=== PATIENT | male | born 1970 | race Caucasian/White ===

== ENCOUNTER 2021-07-19 15:18 | Outpatient (CLI) | payer OTHER, SELFPAY ==
--- NOTE | ~2021-07-19 | US_ITS ---
EXAMINATION: US soft tissue abdomen DATE: 07/19/2021 15:44 INDICATION: Palpable mass in the infracostal right upper quadrant TECHNIQUE: Multiple grayscale and Doppler ultrasound images of the region of concern along the right upper quadrant abdominal wall were obtained. COMPARISON: None FINDINGS: Subcutaneous fat, underlying abdominal wall musculature and liver appear normal at the region of conc simon. IMPRESSION: 1. Normal study. No correlate identified for reported palpable abnormality at the right upper quadran t region of concern. Reviewed, dictated and finalized at location B. IMPRESSION: 1. Normal study. No correlate identified for reported palpable abnormality at t he right upper quadrant region of concern.
== END 2021-07-19 15:19 | disposition home or self-care (01) ==
LOC: ANHIMG 15:19
PROVIDERS: PCP Internal Medicine; Visit Provider Internal Medicine
DX: R10.2 Pelvic and perineal pain (principal); R19.00 Intra-abdominal and pelvic swelling, mass and lump, unspecified site
CPT/HCPCS: 76705

== ENCOUNTER 2021-08-22 01:53 | Day surgery (SDC) | payer OTHER, SELFPAY ==
[2021-08-02 14:58] VITALS: BMI 24.1
--- NOTE | 2021-08-16 08:55 | PC.NURSE ---
Message left on patients cell phone and with Regina regarding covid testing on Saturday 08/19. Informed of the new guidelines regarding screening for covid and illness prior to coming in for procedure and if necessary pt will be rapid swabbed on arrival to Endoscopy. Instructed to call prior to preparation of colonoscopy if having any symptoms or any member of household having a positive test in past 2 weeks. Regina verbalizes understanding.
--- NOTE | 2021-08-19 15:13 | PM.HPGS ---
History of Present Illness History of Present Illness Consent: Risks, benefits, and alternatives have been discussed and questions answered. Patient agrees to proceed with procedure. Chief complaint: neoplasm screening Narrative: Ivan Salgado is a 51 year old male Referred for colon cancer screening. This is his 1st colonoscopy. He is not aware of any family history of colon cancer except for a great grandparent. Review of Systems Review of Systems: All systems reviewed & are unremarkable except as noted in HPI and below PMFSH Past Medical History Medical History History of broken finger History of nephrolithotomy with removal of calculi Kidney stone Surgical History Surgical History H/O lymph node biopsy Family History Family History Mother Patient's mother is in good health Father Patient's father is in good health Sibling Patient's sister is in good health Grandparent Family history of cardiovascular disease Carcinoma of colon Other Acute myocardial infarction Cerebrovascular accident Hypertension Social History Social History Smoking status: Former smoker Tobacco type: smokeless tobacco Smokeless tobacco user: chewing tobacco Alcohol intake: current Drinks per week: 35 Substance use: current Substance use type: marijuana Other substance usage details: occasionally Living arrangements: with family Spiritual care concerns: No Meds Home Medications and Allergies Home Medications Medication Instructions Recorded Confirmed Type crisaborole 2 % topical ointment 1 applic TOPICAL BID #60 g 11/23/20 08/02/21 Rx losartan 50 mg tablet 50 mg PO DAILY #90 tablet 06/17/21 08/02/21 Rx mometasone 0.1 % topical cream 1 applic TOPICAL DAILY #45 g 06/17/21 08/02/21 Rx rosuvastatin 40 mg tablet 40 mg PO DAILY #90 tablet 06/17/21 08/02/21 Rx icmyejyh-xus-qqzpa-vit K-lycop 1 tablet PO DAILY 08/02/21 08/02/21 History [Men's Multivitamin] Allergies Allergy/AdvReac Type Severity Reaction Status Date / Time acetaminophen AdvReac Mild CONSTIPATED Verified 08/22/21 08:36 hydrocodone AdvReac Mild CONSTIPATED Verified 08/22/21 08:36 oxycodone AdvReac Mild Abdominal Verified 08/22/21 08:36 Pain Exam Resp: Auscultation: clear to auscultation bilaterally Cardio: Rate: regular rate Rhythm: regular rhythm GI: GI Palp: Yes Soft to palpation and No Tenderness to palpation present (GI) Assessment and Plan Assessment and plan (1) Colon cancer screening: Code(s): Z12.11 - Encounter for screening for malignant neoplasm of colon Status: Acute Assessment and Plan: Colonoscopy with possible biopsy or polypectomy or cautery or injection of substances.
[2021-08-22 08:37] VITALS: BP 154/91; PULSE 62; RESP 17; TEMP 36.2; O2SAT 100
[2021-08-22] MEDS: LACTATED RINGERS 1,000 ML 150 ML IV CONT (08:48)
--- NOTE | 2021-08-22 09:11 | WPDANESEPPF ---
Anes - Initial Pre Proc Eval Procedure: Operation Date: 08/22/21 09:30 Proposed Procedures p Screening Colonoscopy - Jay Castillo MD Date/Time: 08/22/21 09:11 Surgeon: Jay Castillo MD Pre Op Diagnosis: neoplasm screening Patient Data Age: 51 Gender: M Height: 1.7 m Weight: 68.6 kg Last Vital Signs Temp 97.1 F L 08/22/21 08:37 Pulse 62 08/22/21 08:37 Resp 17 08/22/21 08:37 BP 154/91 H 08/22/21 08:37 Pulse Ox 100 08/22/21 08:37 Allergies Allergy/AdvReac Type Severity Reaction Status Date / Time acetaminophen AdvReac Mild CONSTIPATED Verified 08/22/21 08:36 hydrocodone AdvReac Mild CONSTIPATED Verified 08/22/21 08:36 oxycodone AdvReac Mild Abdominal Verified 08/22/21 08:36 Pain Home Medications Medication Instructions Recorded Confirmed Type crisaborole 2 % topical ointment 1 applic TOPICAL BID #60 g 11/23/20 08/02/21 Rx losartan 50 mg tablet 50 mg PO DAILY #90 tablet 06/17/21 08/02/21 Rx mometasone 0.1 % topical cream 1 applic TOPICAL DAILY #45 g 06/17/21 08/02/21 Rx rosuvastatin 40 mg tablet 40 mg PO DAILY #90 tablet 06/17/21 08/02/21 Rx ozhnynxt-eot-nspgd-vit K-lycop 1 tablet PO DAILY 08/02/21 08/02/21 History [Men's Multivitamin] Patient hx anesthesia problems: none Family hx anesthesia problems: none Results Review: All pre-operative results and documents have been reviewed as part of the pre-operative evaluation. [facility] Past Medical History Medical History History of broken finger History of nephrolithotomy with removal of calculi Kidney stone Surgical History Surgical History H/O lymph node biopsy Family History Family History Mother Patient's mother is in good health Father Patient's father is in good health Sibling Patient's sister is in good health Grandparent Family history of cardiovascular disease Carcinoma of colon Other Acute myocardial infarction Cerebrovascular accident Hypertension Social History Social History Smoking status: Former smoker Tobacco type: smokeless tobacco Smokeless tobacco user: chewing tobacco Alcohol intake: current Drinks per week: 35 Substance use: current Substance use type: marijuana Other substance usage details: occasionally Living arrangements: with family Spiritual care concerns: No Anes - Eval Final PreProcedure Day of Procedure 08/22/21 09:11 Patient weight: normal Heart: regular rate and rhythm Lungs: clear to auscultation Airway: Mallampati scale class II Neurological: alert and oriented Last oral intake: >/= 8 hours ASA classification: II Emergent: no Anesthetic plan: proceed Anesthesia type and monitoring: general GIVS and standard monitoring Results Review: All pre-operative results and documents have been reviewed as part of the pre-operative evaluation. Informed Consent: The patient's anesthetic plan and its attendant risks and benefits were discussed with the patient/family/POA. Questions were solicited and answers provided to the satisfaction of the patient/family/POA.
[2021-08-22] MEDS: SIMETHICONE ORAL SUSPENSION 20 MG/0.3 ML 30 ML BOTTLE 0.6 ML IRRIGATION (09:31)
[2021-08-22 09:39] VITALS: BP 116/72; PULSE 54; RESP 16; O2SAT 100
[2021-08-22 09:49] VITALS: BP 132/89; PULSE 52; RESP 20; O2SAT 100
[2021-08-22 09:59] VITALS: BP 140/90; PULSE 50; RESP 24; O2SAT 100
== END 2021-08-22 10:05 | disposition home or self-care (01) ==
PROVIDERS: PCP Internal Medicine; Visit Provider Internal Medicine Gastroenterology
PROC: 0DJD8ZZ Inspection of Lower Intestinal Tract, Via Natural or Artificial Opening Endoscopic (ICD-10-PCS; CPT 45378; principal; 2021-08-22 09:30)
DX: Z12.11 Encounter for screening for malignant neoplasm of colon (principal); D12.4 Benign neoplasm of descending colon; Z87.442 Personal history of urinary calculi; Z87.891 Personal history of nicotine dependence
CPT/HCPCS: 45385; 88305; J2704; J7120

== ENCOUNTER 2022-03-10 08:53 | Emergency (ER) | payer OTHER, SELFPAY ==
--- NOTE | 2022-03-10 08:56 | ED.URI ---
HPI - URI/Sore Throat General Chief Complaint: Upper Respiratory Infection Stated Complaint: uri Time Seen by Provider: 03/10/22 09:21 Source: patient, RN notes reviewed and old records reviewed Mode of arrival: ambulatory Limitations: no limitations History of Present Illness HPI Narrative: 52-year-old female presents to the [facility] with complaints of sinus congestion that has gradually gotten worse over the last 2 weeks. Has tried multiple ebiu-wnp-xfstulr products with minimal relief. States that yesterday he had the best relief with Afrin nasal spray. Denies fevers. States couple of days ago the sinus pressure was so bad it felt like it was coming out of his eyes. Denies any chest pain or shortness of breath. Denies abdominal pain Onset (ago): week(s) (2) Able to tolerate fluids by mouth: Yes Exacerbating factors: nothing Treatments prior to arrival: cold medicine Related Data Home Medications Medication Instructions Recorded Confirmed tlxkobib-tnvygteq-sjyzd acid 400 1 tablet PO DAILY 08/02/21 03/10/22 mcg-vit K 20 mcg-lycop 300 mcg tablet (Men's Multivitamin) Allergies Allergy/AdvReac Type Severity Reaction Status Date / Time No Known Allergies Allergy Verified 03/10/22 09:02 Review of Systems Review of Systems: All systems reviewed & are unremarkable except as noted in HPI and below Constitutional: Constitutional: Reports no additional constitutional complaints, Denies chills and Denies fever(s) Eyes: Eyes: Reports no additional eye complaints ENT: Reports as per HPI, Reports nasal congestion and Reports sore throat Cardiovascular: Cardiovascular: Reports no additional cardiovascular complaints Respiratory: Respiratory: Reports no additional respiratory complaints Gastrointestinal: Gastrointestinal: Reports no additional gastrointestinal complaints Musculoskeletal: Musculoskeletal: Reports no additional musculoskeletal complaints Integumentary/Breasts: Skin/Breast: Reports system reviewed and no additional complaints, except as docu Neurologic: Reports system reviewed and no additional complaints, except as documented Psychiatric: Psychiatric: Reports no additional psychiatric complaints Allergic/Immunologic: Allergic/Immunologic: Reports no additional allergic/immunologic complaints PMFSH Past Medical History Medical History Colon cancer screening History of broken finger History of nephrolithotomy with removal of calculi Hyperlipidemia Hypertension Kidney stone Prediabetes Surgical History Surgical History H/O lymph node biopsy Family History Family History Mother Patient's mother is in good health Father Patient's father is in good health Sibling Patient's sister is in good health Grandparent Family history of cardiovascular disease Carcinoma of colon Other Acute myocardial infarction Cerebrovascular accident Hypertension Social History Social History Smoking status: Former smoker Tobacco type: smokeless tobacco Smokeless tobacco user: chewing tobacco Alcohol intake: current Drinks per week: 35 Substance use: current Substance use type: marijuana Other substance usage details: occasionally Spiritual care concerns: No Comments At the time of my signature, I reviewed and agree with the nursing past medical, surgical, social, and family history. There is no relevant family history pertinent to the patient complaint. Exam Const: General: healthy appearing, comfortable, no acute distress, well developed, alert and well nourished Nutritional Appearance: well nourished Orientation/consciousness: patient oriented x3 Limitations: no limitations HENMT: Head: normal to inspection Ears: external ears normal, TM's normal b
[2022-03-10 09:03] VITALS: BP 132/93; PULSE 70; RESP 16; TEMP 36.6; O2SAT 99
== END 2022-03-10 09:35 | disposition home or self-care (01) ==
PROVIDERS: Emergency Provider Nurse Practitioner
DX: J32.9 Chronic sinusitis, unspecified (principal); F17.220 Nicotine dependence, chewing tobacco, uncomplicated; E78.5 Hyperlipidemia, unspecified; I10 Essential (primary) hypertension; R73.03 Prediabetes
CPT/HCPCS: 99213; G0463

== ENCOUNTER 2022-12-13 15:34 | Emergency (ER) | payer OTHER, SELFPAY ==
--- NOTE | 2022-12-13 15:37 | ED.SKABFB ---
HPI - Skin/Abscess/Foreign Bdy General Chief complaint: Skin/Abscess/Foreign Body Stated complaint: Spider Bite Left Arm Time Seen by Provider: 12/13/22 15:52 Source: patient and RN notes reviewed Mode of arrival: ambulatory Limitations: no limitations History of Present Illness HPI narrative: 52-year-old male presents with concern for stridor bite to his left arm. He reports couple of nights ago he felt a bite of some sort on his left elbow. He reports the area has since become red, swollen, tender and continues to get larger. He denies itching. He denies general malaise, fever, aches, chills, sweats. He denies swollen lips, swollen tongue, trouble breathing. MD complaint: insect bite/sting Related Data Home Medications Medication Instructions Recorded Confirmed mkwkixwi-tdclupyg-fcsuz acid 400 1 tablet PO DAILY 08/02/21 12/13/22 mcg-vit K 20 mcg-lycop 300 mcg tablet (Men's Multivitamin) Allergies Allergy/AdvReac Type Severity Reaction Status Date / Time No Known Allergies Allergy Verified 12/13/22 15:45 Review of Systems Review of Systems: CONSTITUTIONAL: Denies malaise, chills, sweats, or fever. EYES: Denies redness, or discharge. ENT: Denies rhinorrhea, congestion, swollen lips, swollen tongue CARDIOVASCULAR: Denies chest pain, palpitations, or edema. RESPIRATORY: Denies cough or dyspnea. GASTROINTESTINAL: Denies abdominal pain, nausea, vomiting SKIN: Reports redness, warmth, tenderness to the left elbow MUSCULOSKELETAL: Denies joint pain or myalgia. NEUROLOGIC: Denies headache. All systems reviewed & are unremarkable except as noted in HPI and below [facility] Past Medical History Medical History Colon cancer screening History of broken finger History of nephrolithotomy with removal of calculi Hyperlipidemia Hypertension Kidney stone Prediabetes Surgical History Surgical History H/O lymph node biopsy Family History Family History Mother Patient's mother is in good health Father Patient's father is in good health Sibling Patient's sister is in good health Grandparent Family history of cardiovascular disease Carcinoma of colon Other Acute myocardial infarction Cerebrovascular accident Hypertension Social History Social History (Updated 06/30/22 @ 14:47 by Mirza Barry MA) Smoking status: Former smoker Tobacco type: smokeless tobacco Smokeless tobacco user: chewing tobacco Alcohol intake: current Drinks per week: 35 Substance use: current Substance use type: marijuana Other substance usage details: occasionally Lack of Transportation: No Lack of Food: Never True Current Housing: I Have Housing Concerned About Future Housing: No Difficulty Paying Gas/Electric Bills: No Difficulty Paying for Meds: No Currently Unemployed: No Education: Trade/Vocational Certificate Difficulty w/ Childcare or Family Care: No Living arrangements: with family Spiritual care concerns: No Comments At time of signature, agree with nursing past medical, surgical, social and family history. There is no relevant family history pertinent to the presenting complaint Exam Narrative: GENERAL: Well-appearing, well-nourished, and in no acute distress. HEAD: Normocephalic, atraumatic. EYES: PERRLA, conjunctivae clear, and EOMI. ENT: Mucous membranes moist. NECK: Supple. No lymphadenopathy CHEST: Clear to auscultation. No respiratory distress. HEART: Regular rate and rhythm. SKIN: Warm, dry. Approximately 20cm by 10 cm area of erythema, warmth, induration, tenderness without fluctuation noted to the left elbow. No vesicles, ecchymosis, pain the upper portion NEURO: Alert and oriented x3. PSYCH: Normal mood and affect Course Course Emergency Course: Patient is aware of diagnosis, underst
[2022-12-13 15:44] VITALS: BP 135/89; PULSE 68; RESP 16; TEMP 36.8; O2SAT 99
== END 2022-12-13 16:04 | disposition home or self-care (01) ==
PROVIDERS: Emergency Provider Nurse Practitioner
DX: L03.114 Cellulitis of left upper limb (principal); E78.5 Hyperlipidemia, unspecified; I10 Essential (primary) hypertension; R73.03 Prediabetes; Z72.0 Tobacco use; F12.90 Cannabis use, unspecified, uncomplicated
CPT/HCPCS: 99213; G0463

== ENCOUNTER 2023-08-02 10:16 | Emergency (ER) | payer OTHER, SELFPAY ==
--- NOTE | ~2023-08-02 | CT_ITS ---
Non-contrast CT scan of the Abdomen and Pelvis Clinical indication: Abdominal pain, inguinal hernia Technique: 2.5 mm axial scans were obtained through the abdomen and pelvis without intravenous or or al contrast. Dose reduction technique was used on this scan by utilizing automated exposure control a nd iterative reconstruction technique. The dose-length product (DLP) was 261.15 mGy-cm. Findings: Images through the lung bases reveal no abnormalities. Punctate bilateral nonobstructing renal stones are present. No hydronephrosis or ureteral stone ident ified. The liver, spleen, pancreas, gallbladder, and adrenals appear normal. There are atherosclerotic calci fications of the aorta. There is no evidence of bowel obstruction. There is probable wall thickening and adjacent inflammator y change of the proximal to mid sigmoid colon. No abscess or free air. Images through the pelvis were performed. There is no evidence of ascites or lymphadenopathy. Small f at-containing left inguinal hernia noted. Possible diffuse urinary bladder wall thickening versus und erdistention. Prostate gland is probably enlarged. Impression: Probable wall thickening and pericolonic inflammatory change of the proximal to mid sigmoid:, Most co mpatible with infectious/inflammatory colitis. Neoplasm felt to be less likely. No significant divert iculosis evident. Small fat-containing left inguinal hernia. Questionable cystitis versus urinary bladder under distention. Correlate clinically and with urinalys is. Punctate nonobstructing bilateral renal stones. Reviewed, dictated and finalized at [facility]. Impression: Probable wall thickening and pericolonic inflammatory change of the proximal to mid sigmoid:, Most compatible with infectious/inflammatory colitis. Neoplasm f elt to be less likely. No significant diverticulosis evident. Small fat-containing left inguinal hernia. Questionable cystitis versus urinary bladder under distention. Correlate clinic ally and with urinalysis. Punctate nonobstructing bilateral renal stones.
[2023-08-02 10:17] VITALS: BP 147/103; PULSE 97; RESP 16; TEMP 36.4; O2SAT 99
--- NOTE | 2023-08-02 10:55 | ED.ABDPAIN ---
HPI - Abdominal Pain General Chief Complaint: Abdominal Pain Stated Complaint: possible hernia Time Seen by Provider: 08/02/23 10:25 History of Present Illness HPI narrative: 53-year-old male presents to the emergency room for evaluation of left lower inguinal pain. Patient states he is experiencing pain for several days. Patient admits to experiencing a bulge in that area intermittently for 6 months. States the bulge is more prominent when standing, and resolves when lying flat. Patient states he is often able to reduce the bulge by pressing it back into his abdomen. Denies any constipation or difficulty with his bowel movements. Denies fevers. Patient does have a history of a right inguinal hernia repair as an infant. Related Data Home Medications Medication Instructions Recorded Confirmed smiinmmp-rrvvygpi-zlzmq acid 400 1 tablet PO DAILY 08/02/21 01/16/23 mcg-vit K 20 mcg-lycop 300 mcg tablet (Men's Multivitamin) clobetasol 0.05 % topical cream 1 applic topical QAM AND QPM 01/16/23 01/16/23 Allergies Allergy/AdvReac Type Severity Reaction Status Date / Time No Known Allergies Allergy Verified 08/02/23 11:09 Review of Systems Review of Systems: All review of systems unremarkable except where noted in HPI and below on exam PMFSH Past Medical History Medical History Colon cancer screening History of broken finger History of nephrolithotomy with removal of calculi Hyperlipidemia Hypertension Kidney stone Prediabetes Surgical History Surgical History H/O lymph node biopsy Family History Family History Mother Patient's mother is in good health Father Patient's father is in good health Sibling Patient's sister is in good health Grandparent Family history of cardiovascular disease Carcinoma of colon Other Acute myocardial infarction Cerebrovascular accident Hypertension Social History Social History Smoking status: Former smoker Tobacco type: smokeless tobacco Smokeless tobacco user: chewing tobacco Alcohol intake: current Drinks per week: 35 Substance use: current Substance use type: marijuana Other substance usage details: occasionally Lack of Transportation: No Lack of Food: Never True Current Housing: I Have Housing Concerned About Future Housing: No Difficulty Paying Gas/Electric Bills: No Difficulty Paying for Meds: No Currently Unemployed: No Education: Trade/Vocational Certificate Difficulty w/ Childcare or Family Care: No Living arrangements: with family Spiritual care concerns: No Exam Narrative: GENERAL: Well-appearing, well-nourished, no physical limitations, and uncomfortable appearing HEAD: Normocephalic, atraumatic. EYES: Conjunctivae normal, PERRLA and EOMI. CHEST: Clear to auscultation. No respiratory distress. No wheezes rales or rhonchi. HEART: Regular rate and rhythm. No murmur heard. Normal peripheral pulses. ABDOMEN: Soft, left inguinal tenderness, no obvious mass. Bowel sounds present x4 EXTREMITIES: Normal range of motion. No edema. No clubbing or cyanosis SKIN: Warm, dry, no rash. No noted wounds NEURO: No focal deficits. Alert and oriented x3. MAEW. CN's II-XI intact bilaterally, normal gait PSYCH: Cooperative. Normal mood and affect. Course Vital Signs Vital signs: Vital Signs Temperature 36.4 C 08/02/23 10:17 Pulse Rate 97 08/02/23 10:17 Respiratory Rate 16 08/02/23 10:17 Blood Pressure 147/103 H 08/02/23 10:17 Pulse Oximetry 99 08/02/23 10:17 Oxygen Delivery Room Air 08/02/23 10:17 Temperature 36.4 C 08/02/23 10:17 Pulse Rate 97 08/02/23 10:17 Respiratory Rate 16 08/02/23 10:17 Blood Pressure 147/103 H 08/02/23 10:17 Pulse Oximetry
[2023-08-02 11:00] LABS: Appearance Urine Clear (Clear); Basophils Absolute Auto 0.1 K/mm3 (0.0-0.1); Basophils Percent Auto 0.5 % (0.2-1.2); Bilirubin Urine Negative (Negative); Blood Urine Negative (Negative); Color Urine Yellow (Yellow); Eosinophils Absolute Auto 0.3 K/mm3 (0-0.3); Eosinophils Percent Auto 2.7 % (0-4.4); Glucose Urine UA Negative (Negative); Hematocrit 44.5 % (42.0-52.0); Hemoglobin 14.7 g/dL (14.0-18.0); Immature Granulocyte Absolute 0.03 K/mm3 (0.00-0.031); Immature Granulocyte Percent A 0.3 % (0-0.5); Ketones Urine 1+ mg/dL (Negative); Leukocyte Esterase Ur Negative LEU/UL (Negative); Lymphocytes Absolute Auto 1.96 K/mm3 (0.9-3.2); Lymphocytes Percent Auto 17.8 % (18.3-44.2); Mean Corpuscular Volume 93.9 fl (80-100); Mean Platelet Volume 8.7 fl (7.4-10.4); Monocytes Absolute Auto 0.7 K/mm3 (0.1-0.6); Monocytes Percent Auto 6.6 % (2.6-8.5); Neutrophils Absolute Auto 7.9 K/mm3 (1.3-6.7); Neutrophils Percent Auto 72.1 % (45.5-73.1); Nitrate Urine Negative (Negative); Platelet Count Result 322 k/mm3 (150-375); Protein Urine Negative (Negative); Red Blood Count 4.74 M/mm3 (4.6-6.20); Red Cell Distribution Width 11.8 % (11.5-14.5); Specific Grav Ur 1.023 (1.001-1.035); Urobilinogen Urine 0.2 mg/dL (<2.0); pH Urine 5.5 (5.0-9.0)
[2023-08-02 11:03] LABS: Add Urine Microscopic? NO
[2023-08-02 11:10] LABS: Alanine Aminotransferase 33 U/L (6-50); Albumin Level 4.8 g/dL (3.5-5.1); Alkaline Phosphatase 58 U/L (38-126); Anion Gap 6 mmol/L (4-12); Aspartate Amino Transferase 31 U/L (17-59); Bilirubin,Total 0.7 mg/dL (0.2-1.3); Blood Urea Nitrogen 15 mg/dL (9-20); Calcium 9.3 mg/dL (8.4-10.2); Carbon Dioxide 27 mmol/L (22-30); Chloride 104 mmol/L (98-107); Estimated CRCL calculation 95 ml/min; Estimated Glomerular Filt Rate > 60; Glucose 95 mg/dL (65-110); Potassium 4.1 mmol/L (3.4-5.0); Sodium 137 mmol/L (137-145)
[2023-08-02] MEDS: ONDANSETRON INJ 4 MG/2 ML VIAL IV PUSH (11:10)
[2023-08-02] MEDS: SODIUM CHLORIDE 0.9% IV 1,000 ML 999 ML IV CONT (11:10)
[2023-08-02] MEDS: HYDROmorphone HCL INJ (*CRX) 1 MG/ML SYR 0.5 MG IV PUSH (11:11)
== END 2023-08-02 12:14 | disposition home or self-care (01) ==
PROVIDERS: Emergency Provider Nurse Practitioner Family; PCP Nurse Practitioner
DX: K40.90 Unilateral inguinal hernia, without obstruction or gangrene, not specified as recurrent (principal); I10 Essential (primary) hypertension; E78.5 Hyperlipidemia, unspecified; R73.03 Prediabetes; Z87.442 Personal history of urinary calculi; Z87.891 Personal history of nicotine dependence; N20.0 Calculus of kidney
CPT/HCPCS: 36415; 74176; 80053; 81003; 85025; 96361; 96374; 96375; 99284; J1170; J2405; J7030

== ENCOUNTER 2023-08-09 01:37 | Day surgery (SDC) | payer OTHER, SELFPAY ==
[2023-08-08 12:08] VITALS: BMI 22.6
--- NOTE | 2023-08-08 12:12 | PC.NURSE ---
Report to the Outpatient Waiting Room, entrance under the green pavilion located off [facility], at time 0930 on date 08/09/23. Planned Procedure Time: 1130. Time changes happen often and if your time is changed the preop area will call you the afternoon before. - You and your visitor will be asked to self-screen and do not enter if you have any COVID symptoms. - A mask is optional within the hospital at this time. Patients may have clear liquids (water, carbonated beverages, clear teas, apple juice) until 3 hours prior to surgery with a maximum of 20 ounces. - No food from midnight until time of surgery Take the following medications with a SIP of water the morning of surgery: NONE DO NOT STOP ANY OF YOUR OTHER PRESCRIPTION MEDICATIONS PRIOR TO SURGERY ?EXCEPT THE FOLLOWING Medications to discontinue per physician: VITAMINS Date to take last dose: NO MORE UNTIL AFTER SURGERY Please no make-up, nail icelandic, hairspray, perfume, deodorant, or body powder the day of surgery. No jewelry (including any body piercings) or valuables the day of surgery, leave them at home. Please take a shower or bath the night before, or the morning of, surgery with an antibacterial soap. Wear comfortable, loose fitting clothing. - Jewelry must be removed prior to entering the operating room. Rings and piercings that are not removed may be cut off. - The hospital will not accept responsibility for valuables. - Please leave all valuables, including medications, at home the day of surgery. If you are going home after surgery, a licensed pedicab driver must drive you home. - NO public transportation without another adult if you receive anesthesia. - We recommend that an adult stay with you for 24 hours following discharge. - We also recommend that you do not drive, make important decision, drink alcoholic beverages, or take any drugs that were not prescribed by your health care provider for at least 24 hours after your discharge time. Follow any additional instructions given to you from your surgeon. If you or anyone in your household have experienced Covid symptoms in the past week, please notify your surgeon or the nurse liaison at the phone number below for possible testing. Telephone instructions given to PT Phil KAMARA and asked if any additional questions and then verbalized understanding. Patient advised to call surgeon office or pre surgery nurse liaison [phone] if any additional questions.
[2023-08-09] VITALS (10 sets, daily range): BP systolic 117–186; BP diastolic 70–104; PULSE 45–55; RESP 12–18; TEMP 36.1–36.4; O2SAT 99–100; BMI 22.6
[2023-08-09] MEDS: LACTATED RINGERS 1,000 ML 30 ML IV CONT ×2 (09:15→12:39)
[2023-08-09] MEDS: ACETAMINOPHEN 500 MG TABLET 1000 MG PO (09:32)
[2023-08-09] MEDS: KETOROLAC 15 MG/ML VIAL (*BKC) IV PUSH (09:32)
--- NOTE | 2023-08-09 09:37 | ECG_ITS ---
SEE SCANNED COPY FOR CONFIRMED REPORT MTDD
--- NOTE | 2023-08-09 10:13 | WPDHPUPDATE1 ---
History and Physical Update Update Date/Time: 08/09/23 10:13 History and Physical has been reviewed, including an updated exam of the patient. There are NO changes in the patient's condition. Risks, benefits, and alternatives have been discussed and questions answered. Patient agrees to proceed with procedure.
--- NOTE | 2023-08-09 10:56 | WPDANESEPPF ---
Anes - Initial Pre Proc Eval Procedure: Operation Date: 08/09/23 11:30 Proposed Procedures p Robotic Assisted Incarcerated Left Inguinal Hernia Repair with Mesh - Amina Boswell MD Date/Time: 08/09/23 10:56 Surgeon: Amina Boswell MD Pre Op Diagnosis: incarc left inguinal hernia Patient Data Age: 53 Gender: M Height: 1.68 m Weight: 63.5 kg Allergies Allergy/AdvReac Type Severity Reaction Status Date / Time No Known Allergies Allergy Verified 08/08/23 12:07 Home Medications Medication Instructions Recorded Confirmed Type wpolzied-ymivghmd-wmddz acid 400 1 tablet PO DAILY 08/02/21 08/08/23 History mcg-vit K 20 mcg-lycop 300 mcg tablet (Men's Multivitamin) losartan 50 mg tablet 50 mg PO DAILY #90 tabs 01/16/23 08/08/23 Rx rosuvastatin 40 mg tablet 40 mg PO DAILY #90 tabs 01/16/23 08/08/23 Rx hydrocodone 5 mg-acetaminophen 325 1 tablet PO Q8H PRN pain #20 tabs 08/02/23 08/08/23 Rx mg tablet clobetasol 0.05 % topical cream 1 applic topical QAM AND QPM #60 08/08/23 08/09/23 Rx grams crisaborole 2 % topical ointment 1 applic topical DAILY #60 grams 08/08/23 08/09/23 Rx (Eucrisa) Laboratory Tests 08/09/23 09:16 Blood Type O Positive Antibody Screen Negative Patient hx anesthesia problems: none Family hx anesthesia problems: none Results Review: All pre-operative results and documents have been reviewed as part of the pre-operative evaluation. [facility] Past Medical History Medical History Colon cancer screening History of broken finger History of nephrolithotomy with removal of calculi Hyperlipidemia Hypertension Kidney stone Prediabetes Surgical History Surgical History H/O inguinal hernia repair As an infant H/O lymph node biopsy Family History Family History Mother Patient's mother is in good health Father Patient's father is in good health Sibling Patient's sister is in good health Grandparent Family history of cardiovascular disease Carcinoma of colon Other Acute myocardial infarction Cerebrovascular accident Hypertension Social History Social History Smoking status: Former smoker Tobacco type: smokeless tobacco Smokeless tobacco user: chewing tobacco Alcohol intake: current Drinks per week: 18 Alcohol use details: BEER Substance use: current Substance use type: marijuana Other substance usage details: occasionally Lack of Transportation: No Lack of Food: Never True Current Housing: I Have Housing Concerned About Future Housing: No Difficulty Paying Gas/Electric Bills: No Difficulty Paying for Meds: No Currently Unemployed: No Education: Trade/Vocational Certificate Difficulty w/ Childcare or Family Care: No Living arrangements: with family Spiritual care concerns: No Anes - Eval Final PreProcedure Day of Procedure 08/09/23 10:56 Patient weight: normal Heart: regular rate and rhythm Lungs: clear to auscultation Airway: Mallampati scale and special considerations (R upper incisor w prev crack. ) poor dentition Neurological: alert and oriented Last oral intake: >/= 8 hours ASA classification: II Emergent: no Anesthetic plan: proceed Anesthesia type and monitoring: general ETT and standard monitoring Results Review: All pre-operative results and documents have been reviewed as part of the pre-operative evaluation. HTN, Hyperlipidemia, pt smokes marijuana 2 x daily, none this am. EKG NSR. Informed Consent: The patient's anesthetic plan and its attendant risks and benefits were discussed with the patient/family/POA. Questions were solicited and answers provided to the satisfaction of the patient/family/POA.
[2023-08-09] MEDS: ceFAZolin 2 GM/D5W 50 ML 2 GM/50 ML BAG IVPB (11:20)
[2023-08-09] MEDS: BUPIVACAINE/EPINEPHRINE 0.5% 50 ML VIAL 30 ML INFILTRATE (11:55)
--- NOTE | 2023-08-09 12:37 | P.OP_ITS ---
Procedure Note - Detailed Date of Procedure 08/09/23 Pre-op Diagnosis incarcerated left inguinal hernia Post-op Diagnosis Same Procedure Performed robotic assisted left inguinal hernia repair with mesh Surgeon Amina Boswell MD Anesthesia General Indications 53-year-old male presenting to the office with incarcerated left inguinal hernia. Patient recently seen in the emergency department and imaging confirmed preop diagnosis. Findings Incarcerated indirect left inguinal hernia with sigmoid colon Description of Procedure Patient was brought into the operating room and placed in the supine position. After adequate induction of general anesthesia, the patient was prepped and draped in normal sterile fashion. A time-out was then done to verify the patient's identity, as well as the procedure being performed. I began by making a 8 mm incision in the supraumbilical region, a Veress needle was then placed into the peritoneal cavity. CO2 gas was then insufflated and after adequate pneumoperitoneum was achieved, the Veress needle was removed. I then placed an 8 mm trocar through this incision. I then placed the endoscope through this trocar site and under direct visualization placed 2 further 8 mm ports in the right and left mid abdomen. The [employer] robot was then docked to the 3 trocar sites. I then scrubbed out and went to the robotic console. Upon examining the pelvis, it was noted that the patient had a large left inguinal hernia. There was noted to be some sigmoid colon incarcerated within the hernia and this was easily reduced. The right side was examined and no hernia defect was noted. I began by making a preperitoneal flap approximately 6 cm superior to the defect. This flap was carried medially past the umbilical ligaments and laterally to the transversalis. It then began dissection of my medial compartment taking this down to the pubic tubercle. I then began the lateral dissection taking this down to the transversalis fascia. Once these compartments were achieved, I began dissection around the cord structures. A large sized indirect hernia was noted at this point. Using careful dissection, was able to reduce indirect hernia sac off the cord structures. I also reduced a large lipoma of the cord. Once this was adequately done, I went ahead and placed a large piece of 3D Max mesh into the abdominal cavity. The mesh was carefully positioned, centering the center of the mesh over the indirect defect. Once this was done, was very satisfied with our repair. Using 3-0 Vicryl sutures, I tacked the mesh medially to Alfred's ligament. Two lateral sutures were placed from the mesh to the transversalis fascia. I then closed the peritoneal flap with a running 2.0 V Lock suture. The abdomen was then desufflated, and all ports were removed. All incisions were then closed with the 4.0 monocryl suture. Dermabond was placed on each wound. The patient tolerated the procedure well, was extubated in the operating room postoperatively, and will now be transferred to the recovery room in stable condition. Implants large 3DMax mesh Estimated Blood Loss 10 Drains No Packing No Pathology None sent Complications No immediate complications Condition Stable Disposition PACU [facility] Billing Surgery - Charge Forward: Surgery Billing
--- NOTE | 2023-08-09 13:20 | SUR.PHASEI ---
1318: Simple mask removed.
[2023-08-09] MEDS: fentaNYL CITRATE INJ (*CRX) 100 MCG/2 ML VIAL 25 MCG IV PUSH ×4 (13:35→14:17)
[2023-08-09] MEDS: oxyCODONE HCL (*CRX) 5 MG TAB IR PO (14:05)
[2023-08-09] MEDS: LACTATED RINGERS 1,000 ML 100 ML IV CONT (14:19)
== END 2023-08-09 15:06 | disposition home or self-care (01) ==
PROVIDERS: PCP Nurse Practitioner; Visit Provider Surgery
PROC: 8E0Y4CZ Robotic Assisted Procedure of Lower Extremity, Percutaneous Endoscopic Approach (ICD-10-PCS; CPT 49650; principal; 2023-08-09 11:30)
DX: K40.30 Unilateral inguinal hernia, with obstruction, without gangrene, not specified as recurrent (principal); I10 Essential (primary) hypertension; E78.5 Hyperlipidemia, unspecified; F17.220 Nicotine dependence, chewing tobacco, uncomplicated
CPT/HCPCS: 49650; S2900; 36415; 86850; 86900; 86901; 93005; A9270; C1781; J0690; J1100; J1885; J2250; J2405; J2704; J3010; J7030; J7120